=== PATIENT | male | born 1995 | race Caucasian/White ===

== ENCOUNTER 2025-03-05 08:21 | Emergency (ER) | payer SELFPAY ==
--- OUTSIDE RECORDS SUMMARY | 2025-03-05 08:27 | XMS_ITS | Clinical Summary ---
Author Organization [facility] Address [address], [address] [place] [address] Care Team Providers Care Dialysis Technician Name Role Phone None, Pcp MD Primary Care Provider Unavailabl e Source Comments [facility] (Labor and Delivery) documents do not appear in the Encounter Summary [facility] Allergies No known active allergies Medications * Please verify current medications with patient. No known medications Active Problems Problem Noted Date Diagnosed Date Contusion of left hand 01/05/2025 Encounters Date Type Department Care Team Description 01/05/2025 8:30 AM MDT Initial consult [facility] [address] [place] [address] Danyel Dale MD Contusion of left hand, initial encounter (Primary Dx) 01/05/2025 Travel 01/01/2025 1:35 PM MDT - 01/01/2025 3:39 PM MDT Emergency [facility] Emergency Department [address] [place] [address] Kvng Fournier, DO Discharge Disposition: Home or Self Care 01/01/2025 Travel from Last 3 Months Social History Tobacco Use Types Packs/Day Years Used Date Smoking Tobacco: Never Assessed Sex and Gender Information Value Date Recorded Sex Assigned at Not on file Legal Sex Male 1:29 PM MDT Gender Identity Not on file Sexual Orientation Not on file Last Filed Vital Signs Vital Sign Reading Time Taken Comments Blood Pressure 130/80 01/01/2025 3:37 PM MDT Pulse 94 01/01/2025 1:37 PM MDT Temperature 36.6 C (97.9 F) 01/01/2025 3:37 PM MDT Respiratory Rate 16 01/01/2025 3:37 PM MDT Oxygen Saturation 96% 01/01/2025 3:37 PM MDT Inhaled Oxygen Concentration - - Weight 59 kg (130 lb 1.1 oz) 01/01/2025 1:37 PM MDT Height 172.7 cm (5' 8) 01/01/2025 1:37 PM MDT Body Mass Index 19.78 01/01/2025 1:37 PM MDT Plan of Treatment Health Maintenance Due Date Last Done Comments HIV Screening 1995 Hepatitis C Screening 1995 Hepatitis B Vaccine (1 of 3 - 19+ 3-dose series) 10/09/2014 Tetanus Diphtheria and Pertu ssis Vaccines (1 - Tdap) 10/09/2014 HPV Vaccine (1 - 3-dose SCDM series) 10/09/2022 COVID-19 Vaccine (1 - 2024-2 6 season) 2024 Influenza Vaccine (#1) 2024 Zoster Vaccines (1 of 2) 10/09/2045 RSV Vaccines (1 - 1-dose 75+ series) 10/09/2070 Hepatitis A Vaccine Aged Out No longe r eligible based on patient's age to complete this topic Hib Vaccine Aged Out No longer eligi ble based on patient's age to complete this topic IPV Vaccine Aged Out No longer eligi ble based on patient's age to complete this topic Meningococcal B Vaccine Aged Out No l onger eligible based on patient's age to complete this topic Meningococcal Vaccine (MCV4) Aged Out No longer eligible based on patient's age to complete this topic Pneumococcal Vaccine: Pediat rics (0 to 5 Years) and At-Risk Patients (6 to 49 Years) Aged Out No longer eligible b ased on patient's age to complete this topic Rotavirus Vaccine Aged Out No longer eligible based on patient's age to complete this topic Procedures Procedure Name Priority Date/Time Associated Diagnosis Comments XR HAND UNILATERAL 3 VIEWS STAT 01/01/2025 3:[address] ABDOMEN AND PELVIS W CONTRAST STAT 01/01/2025 3:[address] CHEST W CONTRAST STAT 01/01/2025 3 :00 PM MDT COMPREHENSIVE METABOLIC PANEL STAT 01/01/2025 2:01 PM MDT CBC WITH DIFFERENTIAL STAT 01/01/2025 2:01 PM MDT from Last 3 Months Results * Left XR Hand - 3 Views (01/01/2025 3:31 PM MDT) Anatomical Region Laterality Modality hand Xray Imaging 01/01/2025 3:23 PM MDT Narrative 01/01/2025 3:33 PM MDT EXAMINATION: XR HAND UNILATERAL 3 VIEWS LEFT COMPARISON: None HISTORY: Left hand injury and pain. TECHNIQUE: 3 views of the left hand FINDINGS: BONES: No fracture or subluxation. SOFT TISSUES: No visible soft tissue swelling. OTHER: IMPRESSION: No evidence of acute injury. This report was electronically signed by Danyel Fox MD on 01/01/2025 3:33 PM. Procedure Note Danyel Fox MD - 01/01/2025 EXAMINATION: XR HAND UNILATERAL 3 VIEWS LEFT COMPARISON: None HISTORY: Left hand injury and pain. TECHNIQUE: 3 views of the left hand FINDINGS: BONES: No fracture or subluxation. SOFT TISSUES: No visible soft tissue swelling. OTHER: IMPRESSION: No evidence of acute injury. This report was electronically signed by Danyel Fox MD on01/01/2025 3:33 PM. [facility] DIAGNOSTIC IMAGING ORDERA BLES Final Result * CT Abdomen and Pelvis w Contrast (01/01/2025 3:01 PM MDT) Anatomical Region Laterality Modality Abdomen Computed Tomogra phy 01/01/2025 2:41 AM MDT Narrative 01/01/2025 3:08 PM MDT EXAMINATION: CT ABDOMEN AND PELVIS W CONTRAST COMPARISON: None HISTORY: Abdominal pain, acute, nonlocalized Trauma TECHNIQUE: Axial CT images were obtained through the abdomen and pelvis with the administration of intravenous contrast. Sagittal and coronal reconstructions were created. References: [email or web address] FINDINGS: Diagnostic Quality: Adequate for interpretation and recommendations. Lower Thorax: Normal. GE Junction and Stomach: Normal. Liver: Normal. Liver lesion(s) requiring follow-up: No. Gallbladder: Normal. Bile Ducts: Normal. Pancreas: Normal. Spleen: Normal. Adrenals: Normal. Kidneys: Normal. Vasculature: Normal for age. Nodes/Retroperitoneum: Normal. Bowel: Normal course and caliber. Normal appearance of the appendix. Mesentery/Peritoneum: There is a small amount of free fluid in the pelvic peritoneal cavity. Pelvis: No significant pelvic findings. Normal urinary bladder. Abdominal Wall/Soft Tissues: Normal. Bones: Normal for age. IMPRESSION: 1. Small amount of free fluid in the pelvis, otherwise unremarkable CT abdomen and pelvis. This report was electronically signed by Kvng Harper MD on 01/01/2025 3:08 PM. Procedure Note Kvng Harper MD - 01/01/2025 EXAMINATION: CT ABDOMEN AND PELVIS W CONTRAST COMPARISON: None HISTORY: Abdominal pain, acute, nonlocalized Trauma TECHNIQUE: Axial CT images were obtained through the abdomen and pelviswith the administration of intravenous contrast. Sagittal and coronalreconstructions were created. References: [email or web address] FINDINGS: Diagnostic Quality: Adequate for interpretation and recommendations. Lower Thorax: Normal. GE Junction and Stomach: Normal. Liver: Normal. Liver lesion(s) requiring follow-up: No. Gallbladder: Normal. Bile Ducts: Normal. Pancreas: Normal. Spleen: Normal. Adrenals: Normal. Kidneys: Normal. Vasculature: Normal for age. Nodes/Retroperitoneum: Normal. Bowel: Normal course and caliber. Normal appearance of the appendix. Mesentery/Peritoneum: There is a small amount of free fluid in the pelvicperitoneal cavity. Pelvis: No significant pelvic findings. Normal urinary bladder. Abdominal Wall/Soft Tissues: Normal. Bones: Normal for age. IMPRESSION: 1. Small amount of free fluid in the pelvis, otherwise unremarkable CTabdomen and pelvis. This report was electronically signed by Kvng Harper MD on 53:08 PM. Kvng Fournier DO CT ORDERABLES Final Res ult * CT Chest w Contrast (01/01/2025 3:00 PM MDT) Anatomical Region Laterality Modality Chest Computed Tomogra phy 01/01/2025 1:49 PM MDT Narrative 01/01/2025 3:07 PM MDT EXAMINATION: CT CHEST W CONTRAST COMPARISON: None HISTORY: Other Chest wall pain - trauma TECHNIQUE: Axial CT images were obtained through the chest with the administration of intravenous contrast. Multiplanar and maximum intensity projection reconstructions were created. FINDINGS: Diagnostic Quality: Adequate for interpretation and recommendations. Lower Neck and Axillae: Normal. Pulmonary arteries: Normal. Heart: Normal. Coronary Artery Calcification: None. Aorta: Normal. Mediastinum: Normal. Lungs and Airways: Normal. Pleural Space: Normal. Soft Tissues: Normal. Bones: Normal for age. Upper Abdomen: Normal. IMPRESSION: 1. No acute findings in the chest. This report was electronically signed by Arsalan Gregorio MD on 01/01/2025 3:07 PM. Procedure Note Arsalan Gregorio MD - 01/01/2025 EXAMINATION: CT CHEST W CONTRAST COMPARISON: None HISTORY: Other Chest wall pain - trauma TECHNIQUE: Axial CT images were obtained through the chest with theadministration of intravenous contrast. Multiplanar and maximum intensityprojection reconstructions were created. FINDINGS: Diagnostic Quality: Adequate for interpretation and recommendations. Lower Neck and Axillae: Normal. Pulmonary arteries: Normal. Heart: Normal. Coronary Artery Calcification: None. Aorta: Normal. Mediastinum: Normal. Lungs and Airways: Normal. Pleural Space: Normal. Soft Tissues: Normal. Bones: Normal for age. Upper Abdomen: Normal. IMPRESSION: 1. No acute findings in the chest. This report was electronically signed by Arsalan Gregorio MD on 53:07 PM. Kvng Mackenzie [facility] DO CT ORDERABLES Final Res ult * (ABNORMAL) Comprehensive Metabolic Panel (01/01/2025 2:01 PM MDT) Sodium 138 137 - 146 mmol/L LAB CHEMISTRY METHOD 01/01/2025 2:36 PM MDT [facility] Potassium 4.1 3.5 - 5.0 mmol/L LAB CHEMISTRY METHOD 01/01/2025 2:36 PM MDT [facility] Chloride Level 103 102 - 111 mmol/L LAB CHEMISTRY METHOD 01/01/2025 2:36 PM [facility] CO2 25 19 - 30 mmol/L LAB CHEMISTRY METHOD 01/01/2025 2:36 PM [facility] BUN 16 8 - 20 mg/dL LAB CHEMISTRY METHOD 01/01/2025 2:36 PM [facility] Anion Gap 10 3 - 16 mmol/L LAB CHEMISTRY METHOD 01/01/2025 2:36 PM [facility] Creatinine Level 0.97 Male 0.77-1.35; Female 0.60-1.10 mg/dL LAB CHEMISTRY METHOD 01/01/2025 2:36 PM [facility] eGFR 108 mL/min/1.7 3 m2 LAB CHEMISTRY METHOD 01/01/2025 2:36 PM [facility] Comment: eGFR calculations are intended to be used for patients in steady states. Interpret inpatient eGFR cautiously for patients with fluctuating Cr or fluctuating renal function. Glucose 115(H) 65 - 99 mg/dL LAB CHEMISTRY METHOD 01/01/2025 2:36 PM [facility] Calcium Level 9.7 8.4 - 10.4 mg/dL LAB CHEMISTRY METHOD 01/01/2025 2:36 PM [facility] Total Protein 6.8 6.0 - 8.4 g/dL LAB CHEMISTRY METHOD 01/01/2025 2:36 PM [facility] Albumin 4.4 3.5 - 5.2 g/dL LAB CHEMISTRY METHOD 01/01/2025 2:36 PM [facility] Alkaline Phosphatase 53 Male 40-129; Female 35-104 U/L LAB CHEMISTRY METHOD 01/01/2025 2:36 PM [facility] ALT-SGPT 20 Male 0-55; Female 0-40 U/L LAB CHEMISTRY METHOD 01/01/2025 2:36 PM [facility] AST-SGOT 29 9 - 40 U/L LAB CHEMISTRY METHOD 01/01/2025 2:36 PM [facility] Bilirubin, Total 0.5 0.2 - 1.3 mg/dL LAB CHEMISTRY METHOD 01/01/2025 2:36 PM [facility] Blood Venipuncture / Unknown 01/01/2025 2:01 PM MDT 01/01/2025 2:04 PM MDT us Kvng Fournier DO LAB BLOOD ORDERABLES Leyda hinton Result [facility] [address] [place] [address], [facility] [phone] * CBC with Differential (01/01/2025 2:01 PM MDT) WBC 5.5 3.6 - 10.6 K/uL LAB HEMATOLOGY METHOD 01/01/2025 2:17 PM MDT [facility] RBC 4.57 4.50 - 5.90 M/uL LAB HEMATOLOGY METHOD 01/01/2025 2:17 PM MDT [facility] Hemoglobin 14.5 13.5 - 17.5 g/dL LAB HEMATOLOGY METHOD 01/01/2025 2:17 PM MDT [facility] Hematocrit 43.9 41.0 - 53.0 % LAB HEMATOLOGY METHOD 01/01/2025 2:17 PM MDT [facility] MCV 96.1 80.0 - 100.0 fL LAB HEMATOLOGY METHOD 01/01/2025 2:17 PM MDT [facility] MCH 31.7 26.0 - 34.0 pg LAB HEMATOLOGY METHOD 01/01/2025 2:17 PM MDT [facility] MCHC 33.0 32.0 - 36.0 g/dL LAB HEMATOLOGY METHOD 01/01/2025 2:17 PM MDT [facility] RDW Standard Deviation 46.8 36.7 - 47.2 fL LAB HEMATOLOGY METHOD 01/01/2025 2:17 PM MDT [facility] RDW 13.2 11.3 - 15.6 % LAB HEMATOLOGY METHOD 01/01/2025 2:17 PM MDT [facility] Platelet Count 237 150 - 400 K/uL LAB HEMATOLOGY METHOD 01/01/2025 2:17 PM MDT [facility] MPV 10.0 8.6 - 12.4 fL LAB HEMATOLOGY METHOD 01/01/2025 2:17 PM MDT [facility] Nucleated RBC, Percent 0.0 /100 WBCs LAB HEMATOLOGY METHOD 01/01/2025 2:17 PM MDT [facility] Neutrophil % 62.6 % LAB HEMATOLOGY METHOD 01/01/2025 2:17 PM MDT [facility] Neutrophils, Absolute 3.4 1.8 - 6.8 K/uL LAB HEMATOLOGY METHOD 01/01/2025 2:17 PM MDT [facility] Lymphocyte % 25.4 % LAB HEMATOLOGY METHOD 01/01/2025 2:17 PM MDT [facility] Lymphocyte, Absolute Count 1.4 1.2 - 3.4 k/uL LAB HEMATOLOGY METHOD 01/01/2025 2:17 PM MDT [facility] Monocyte % 10.4 % LAB HEMATOLOGY METHOD 01/01/2025 2:17 PM NYT [facility] Monocytes, Absolute 0.6 0.2 - 0.9 K/uL LAB HEMATOLOGY METHOD 01/01/2025 2:17 PM NYT [facility] Eosinophil % 0.9 % LAB HEMATOLOGY METHOD 01/01/2025 2:17 PM [facility] Eosinophils, Absolute 0.1 <=0.5 K/uL LAB HEMATOLOGY METHOD 01/01/2025 2:17 PM MDT [facility] Basophil % 0.5 % LAB HEMATOLOGY METHOD 01/01/2025 2:17 PM [facility] Basophils, Absolute 0.0 0.0 - 0.1 K/uL LAB HEMATOLOGY METHOD 01/01/2025 2:17 PM [facility] Granulocytes, Immature, % 0.200 0.000 - 0.500 % LAB HEMATOLOGY METHOD 01/01/2025 2:17 PM NYT [facility] Granulocyte, Immature, Absolute 0.01 0.00 - 0.04 K/uL LAB HEMATOLOGY METHOD 01/01/2025 2:17 PM NYT [facility] Blood Venipuncture / Unknown 01/01/2025 2:01 PM MDT 01/01/2025 2:05 PM MDT us Kvng Fournier DO LAB BLOOD ORDERABLES Leyda l Result [facility] [address] [place] [address], [facility] [phone] from Last 3 Months Care Teams Dialysis Technician Relationship Specialty Start Date End Date None, Pcp, MD PCP - General Other or Unknown Specialty 01/01/25
[2025-03-05 08:33] VITALS: BP 114/65; PULSE 63; RESP 18; TEMP 36.7; O2SAT 100
--- NOTE | 2025-03-05 08:57 | ED.URI ---
HPI - URI/Sore Throat General Chief Complaint: Upper Respiratory Infection Stated Complaint: URI patient presents to the [facility] with complaints nasal congestion, nasal drainage, productive cough, sinus pain, headaches, scratchy throat, pressure in ears, and shortness of breath on exertion that began about 1 week ago. Patient reports taking Advil for headache but no other medications taken for symptoms. No specific known sick contacts. Denies fever, chills, body aches, dizziness, difficulty swallowing, chest pain, nausea, vomiting, diarrhea. Related Data Allergies Allergy/AdvReac Type Severity Reaction Status Date / Time No Known Allergies Allergy Verified 03/05/25 08:46 Review of Systems Constitutional: Constitutional: Reports as per HPI, Denies chills, Denies fatigue, Denies fever(s) and Denies weakness Eyes: Eyes: Reports no additional eye complaints ENT: Reports as per HPI, Denies vertigo, Denies dizziness, Reports nasal congestion and Reports sore throat Comments: Pressure in ears, sinus pain Cardiovascular: Cardiovascular: Reports no additional cardiovascular complaints Respiratory: Respiratory: Reports as per HPI, Reports chest congestion, Reports cough, Denies dyspnea and Denies wheezing Gastrointestinal: Gastrointestinal: Reports no additional gastrointestinal complaints Genitourinary: Genitourinary: Reports no additional male genitourinary complaints Musculoskeletal: Musculoskeletal: Reports no additional musculoskeletal complaints Integumentary/Breasts: Skin/Breast: Reports as per HPI, Denies pruritus, Denies erythema, Denies rash and Denies skin ulcer Neurologic: Reports as per HPI, Denies vertigo, Denies dizziness, Reports headache(s) and Denies weakness Psychiatric: Psychiatric: Reports no additional psychiatric complaints Endocrine: Endocrine: Reports no additional endocrine complaints Hematologic/Lymphatic: Hematologic/Lymphatic: Reports no additional hematologic/lymphatic complaints Allergic/Immunologic: Allergic/Immunologic: Reports no additional allergic/immunologic complaints Exam Const: General: healthy appearing and no acute distress Nutritional Appearance: well nourished Orientation/consciousness: patient oriented x3 Limitations: no limitations HENMT: Head: normal to inspection Ears: external ears normal and TM's abnormal bilaterally ( minimal erythema with bulging no fluid or loss of bony landmarks) Face/Nose/Sinus: Normal external nose present and nares abnormal ( mild erythema and edema bilaterally) Face and sinus: normal facial exam and sinuses nontender Mouth: Yes Normal oral and palatal mucosa present, Yes lip normal and Yes moist mucous membranes Throat: posterior oropharynx abnormal ( moderate erythema and edema no exudate noted) Neck: Neck: normal visual inspection and no lymphadenopathy Resp: Effort & Inspection: normal respiratory effort Auscultation: clear to auscultation bilaterally Cardio: Rate: regular rate Rhythm: regular rhythm Skin: General skin exam: normal color Rashes: no rashes Wounds: no wounds Neuro: General: patient oriented x3 Speech: normal speech Gait exam (Neuro): Normal gait present Psych: Mental Status: mental status grossly normal Affect: normal affect Attitude: cooperative Course Course Level of Care: Express Care Visit Vital Signs Vital signs: Vital Signs Temperature 98.1 F 03/05/25 08:33 Pulse Rate 63 03/05/25 08:33 Respiratory Rate 18 03/05/25 08:33 Blood Pressure 114/65 03/05/25 08:33 Pulse Oximetry 100 03/05/25 08:33 Oxygen Delivery Room Air 03/05/25 08:33 Temperature 98.1 F 03/05/25 08:33 Pulse Rate 63 03/05/25 08:33 Respiratory Rate 18 03/05/25 08:33 Blood Pressure 114/65 03/05/25 08:33 Pulse Oximetry 100 03/05/25 08:33 Oxygen Delivery Room Air 03/05/25 08:33 MDM - URI/Sore Throat MDM Narrative Medical decision making narrative: 1 week of symptoms with sinus pain and worsening symptoms. Will place patient on antibiotics. Also noted patient has shortness of breath no wheezing noted in Express Care will give for as needed The patient was evaluated by myself in the express care. History is obtained from patient who is an independent historian and physical exam was performed. Available medical records were reviewed at this time. Exam findings show no acute concerns or changes; patient is non-toxic appearing and is in no distress. Patient is appropriate for outpatient treatment and follow-up. I have evaluated and discussed social determinants of health with the patient that could potentially impact subsequent diagnosis and treatment plans. Differential diagnosis and treatment plan were discussed with the patient. Patient agrees with discussion and after shared medical decision making agrees with plan of care. All questions were answered to the patient's satisfaction. Differential Diagnosis Differential diagnosis: Likely upper respiratory infection, croup, otitis media, sinusitis, bronchitis, influenza and pharyngitis Medical Records Attestation: I reviewed the patient's medical records. Discharge Plan Discharge Clinical Impression: Sinusitis Patient Disposition: Home Condition: Stable Instructions: Antibiotic Form, Sinusitis (ED) Additional Instructions: Take the antibiotics as directed for the entire course. Do not miss any doses. What you are taking antibiotics and is recommended to take a probiotic or have yogurt daily to return the good gut bacteria to your system. This can also help with acute diarrhea while taking antibiotics. It can take 24-48 hours for the antibiotics to start to relieve your symptoms continue to take these medications to help with various symptoms: Tylenol or Motrin for pain, headache, or fever Flonase/fluticasone or Nasacort/triamcinolone nasal spray- helps with congestion and nasal drainage. Sudafed/pseudoephedrine helps with sinus pain and congestion. Caution with high blood pressure. Use a humidifier or vaporizer at night. Drink plenty of water. 8-10 glasses per day. Mucinex/guaifenesinas directed and be sure to take with 8oz of water. Warm compresses over the forehead and cheeks to promote sinus drainage. Return to urgent care or go to the ER for new or worsening symptoms. Follow up with Primary provider if not improved after 1 week. Patient Language: Belarusian Prescriptions: New benzonatate 200 mg capsule 200 mg PO TID PRN (Reason: cough) Qty: 30 0RF amoxicillin 875 mg tablet 875 mg PO Q12H Qty: 20 0RF albuterol sulfate [Ventolin HFA] 90 mcg/actuation HFA aerosol inhaler 2 puff inhalation QID PRN (Reason: shortness of breath or wheezing) Qty: 8.5 0RF Follow-up/Referrals: UNKNOWN,DOCTOR [Primary Care Provider] Time of Disposition: 08:59
== END 2025-03-05 09:05 | disposition home or self-care (01) ==
PROVIDERS: Emergency Provider Nurse Practitioner Family
DX: J32.9 Chronic sinusitis, unspecified (principal)
CPT/HCPCS: 99203; G0463